=== PATIENT | male | born 1945 | race Caucasian/White ===

== ENCOUNTER 2016-03-24 14:38 | Day surgery (SDC) | payer MEDICARE, BC ==
[~2016-03-24] VITALS: Ht 172.7 cm; Wt 74.9 kg
[~2016-03-24 14:38] MED LIST: ONDANSETRON HCL 4 MG/2 ML VIAL IV PUSH ONE; PROPOFOL 200 MG/20 ML AMP IV ONE
[2016-03-24] MEDS ORDERED: QUIN1TAB11 PO (15:15)
[2016-03-24] MEDS ORDERED: BUSP10TA PO (15:15)
[2016-03-24] MEDS ORDERED: AMPH1TAB29 PO (15:15)
[2016-03-24] MEDS ORDERED: ZOLO100T PO (15:15)
[2016-03-24] MEDS ORDERED: LEVO25TA39 PO (15:15)
[2016-03-24 15:28] VITALS: BP 151/89; PULSE 80; RESP 16; TEMP 97.8; O2SAT 98
[2016-03-24] MEDS ORDERED: SODIUM CHLORID 0.9% 500 ML IV SCH (15:30)
[2016-03-24] MEDS ORDERED: INSULIN HUMAN REGULAR 1,000 UNITS/10 ML VIAL SQ PRN (15:30)
[2016-03-24] MEDS ORDERED: METOPROLOL TARTRATE 25 MG TAB PO PRN (15:30)
[2016-03-24] MEDS ORDERED: LACTATED RINGER'S 1000 ML IV SCH (15:30)
[2016-03-24] MEDS: ATROPINE SULFATE 1% OPHT SOLN 5 ML BTL LEFT EYE SCH ×2 (15:45→16:00)
[2016-03-24] MEDS: MOXIFLOXACIN 0.5% OPHT SOLN 3 ML BTL LEFT EYE SCH ×2 (15:45→16:00)
[2016-03-24] MEDS: prednisoLONE ACETATE 1% OPHT SUSP 5 ML BTL LEFT EYE SCH ×2 (15:45→16:00)
[2016-03-24] MEDS: CYCLOPENTOLATE HCL 1% OPHT SOLN 2 ML BTL LEFT EYE SCH ×2 (15:45→16:00)
[2016-03-24] MEDS: TROPICAMIDE 1% OPTH SOLN 2 ML BTL LEFT EYE SCH ×2 (15:45→16:00)
[2016-03-24] MEDS: PHENYLEPHRINE HCL 2.5% OPTH SOLN 2 ML BTL LEFT EYE SCH ×2 (15:45→16:00)
[2016-03-24] MEDS ORDERED: FAMOTIDINE 20 MG/2 ML VIAL ONE (15:54)
[2016-03-24] MEDS ORDERED: EPINEPHrine HCL (1:1000) 1 MG/ML VIAL OTHER ONE (16:43)
[2016-03-24] MEDS ORDERED: TOBRAMYCIN/DEXAMETHASONE OPTH OINT 3.5 GM TUBE LEFT EYE ONE (16:43)
[2016-03-24] MEDS ORDERED: DEXAMETHASONE SOD PHOS 4 MG/ML VIAL OTHER ONE (16:43)
[2016-03-24] MEDS ORDERED: BALANCED SALT SOLN OPHT IRRIG 15 ML BTL LEFT EYE ONE (16:43)
[2016-03-24] MEDS ORDERED: ceFAZolin INJ 1,000 MG VIAL TOP ONE (16:43)
[2016-03-24] MEDS ORDERED: ACETAMINOPHEN 500 MG CPLT PO PRN (18:45)
[2016-03-24] MEDS ORDERED: DO NOT ADM ANY ANTICOAGULANT DRUGS XX PRN (18:45)
[2016-03-24] MEDS ORDERED: ACETAMINOPHEN 1000 MG/100 ML VIAL IV ONE (19:00)
[2016-03-24 19:13] VITALS: BP 141/86; PULSE 87; RESP 16; TEMP 98.3; O2SAT 98
[2016-03-24] MEDS ORDERED: MIDAZOLAM HCL 2 MG/2 ML VIAL ONE (19:13)
--- NOTE | 2016-03-26 11:54 | EKG ---
Date Performed: 03/24/2016 Time Performed: 15:19:39 PTAGE: 71 years EKG: Sinus rhythm NORMAL ECG NO PREVIOUS TRACING DOCTOR: Lydia Light Interpretating Date/Time 03/26/2016 11:52:12
--- NOTE | 2016-03-30 00:08 | MP ---
cc: CCList DATE OF SURGERY: 03/24/2016 PREOPERATIVE DIAGNOSIS: Retinal detachment, multiple retinal tears, left eye. POSTOPERATIVE DIAGNOSIS: Retinal detachment, multiple retinal tears, left eye. OPERATION: Pars plana vitrectomy, endolaser, retinal detachment repair, insertion of 15% C3F8 left eye. ANESTHESIA General BLOOD LOSS Less than 1 cc. COMPLICATIONS None. INDICATIONS FOR PROCEDURE This is a patient who presented with significant decrease in his peripheral vision of his left eye. The patient was found to have a retinal detachment with multiple horseshoe tears. The patient elected for surgical correction. PROCEDURE NOTE After informed consent was obtained, the patient brought to the operating room, general anesthesia was established. The left eye was prepped and draped in sterile fashion with Betadine in the conjunctival fornix. The deep port pars plana vitrectomy was established with self-retaining infusion cannula. Core vitreous was evacuated and vitreous traction to the retinal periphery was relieved. PFO was instilled and brought over the level of the horseshoe tears while the subretinal fluid was removed. Endolaser was applied carefully around the supranasal and inferonasal. Retinal horseshoe tears in any areas of retinal thinning, nearly 360 degrees. Air-fluid exchange was carried out. Retina remained nicely attached. 15% C3F8 gas was instilled. Sclerotomies closed with several Vicryl sutures. Subconjunctival injections of Ancef and dexamethasone were given. The eye was patched with Tobramycin ointment. The patient brought to the recovery room in stable condition and continue followup with [facility] for his postoperative care. MD NEIL Gray/ALBERTINA /9:38 AM /12:00 AM
== END 2016-03-24 19:13 | disposition home or self-care (01) ==
LOC: HSDC 14:38 → EDBD 14:38 → HSDC 19:13
PROVIDERS: ATTEND Ophthalmology
DX: H33.022 Retinal detachment with multiple breaks, left eye (principal); Z01.810 Encounter for preprocedural cardiovascular examination
CPT/HCPCS: 00145; 67108; 93005; J0131; J0171; J0690; J1100; J2250; J2405; J3010; J7120